=== PATIENT | female | born 1945 | race Caucasian/White ===

== ENCOUNTER 2018-04-03 10:37 | Outpatient (CLI) | payer MEDICARE, SELFPAY ==
--- NOTE | 2018-04-03 10:37 | DI.RAD_ITS ---
SYMPTOMS/DIAGNOSIS: LEFT RIB PAIN, THYROID METS KNOWN LEFT RIBS AND CHEST: Comparison is 02/21/18. The heart size and pulmonary vasculature are within normal limits. There is an infiltrate seen in the left lung base. There is a persistent small left pleural effusion. There is again seen a lytic lesion involving the lateral aspect of the left 4th rib. There now also appear to be lytic lesions involving the posterior aspect of the left 1st rib, posterolateral aspect of the left 2nd rib and the lateral aspect of the left 9th rib. These findings are suspicious for metastatic disease. The lesion involving the posterolateral aspect of the right 5th rib is again noted. IMPRESSION: 1. Bilateral lytic lesions involving the ribs, some of which do not appear to have been present on the examination from 02/21/18. The findings are suggestive of metastatic disease. 2. Small persistent left pleural effusion and left basilar infiltrate. This may represent atelectasis or pneumonia.
== END 2018-04-03 10:57 ==
PROVIDERS: PCP Family Medicine; Visit Provider Family Medicine
DX: R07.81 Pleurodynia (principal); J90 Pleural effusion, not elsewhere classified; R91.8 Other nonspecific abnormal finding of lung field; R93.7 Abnormal findings on diagnostic imaging of other parts of musculoskeletal system; Z85.850 Personal history of malignant neoplasm of thyroid
CPT/HCPCS: 71046; 71100

== ENCOUNTER 2018-07-30 08:21 | Emergency (ER) | payer MEDICARE, SELFPAY ==
[2018-07-30 08:32] VITALS: BP 154/72; PULSE 106; RESP 14; TEMP 36.6; O2SAT 94
--- NOTE | 2018-07-30 08:52 | ED.GENADUL_ITS ---
Discharge Plan Disposition Patient Disposition: HOME Condition: Stable Discharge Details Chief Complaint: RespSymp Clinical Impression: Malignant neoplasm metastatic to lung, Thyroid cancer, medullary carcinoma, Bone metastases Primary Care Provider: Symone Hodges ED Provider: Roberto Johnston Home Meds and New Rx's Prescriptions: New morphine 20 mg/5 mL (4 mg/mL) solution 1 - 4 mg PO Q1H PRN PRN (Reason: dyspnea) Qty: 50 RF: 0 Narcan 4 mg/actuation spray,non-aerosol 1 spray SULTANA ONCE PRN (Reason: opioid overdose) Qty: 2 RF: 0 No Action cyclobenzaprine 5 mg tablet 5 mg PO TID PRN (Reason: muscle spasm) Qty: 30 RF: 3 levofloxacin 500 mg tablet 500 mg PO DAILY Qty: 7 RF: 0 levofloxacin 500 mg tablet 500 mg PO DAILY Qty: 7 RF: 0 morphine concentrate 100 mg/5 mL (20 mg/mL) solution See Rx Instructions SL Q1H PRN MDD 5ml PRN (Reason: pain) Qty: 30 RF: 0 lorazepam 0.5 mg tablet 0.25 - 0.5 mg SL Q6H PRN (Reason: anxiety) Qty: 10 RF: 0 morphine concentrate 100 mg/5 mL (20 mg/mL) solution See Rx Instructions SL Q1H PRN MDD 5ml PRN (Reason: pain) Qty: 30 RF: 0 ondansetron HCl [Zofran] 4 MG tablet 4 mg PO Q6H PRN Qty: 30 RF: 0 Lactobacillus acidophilus [Probiotic] 1 EACH capsule 1 ea PO DAILY Qty: 1 RF: 0 mirtazapine 7.5 MG tablet 7.5 mg PO HS Qty: 30 RF: 11 losartan 50 MG tablet 50 mg PO DAILY Qty: 90 RF: 11 diltiazem HCl 120 MG tablet 120 mg PO DAILY Qty: 90 RF: 11 levothyroxine [Synthroid] 200 MCG tablet 175 mcg PO DAILY Qty: 1 RF: 0 hydrocodone-acetaminophen 5-325 mg tablet 1 tab PO Q6H MDD 3 PRN (Reason: pain) Qty: 60 RF: 0 aspirin [Aspir-81] 81 MG tablet,delayed release (DR/EC) 81 mg PO DIRECTED RF: 0 metoprolol tartrate 25 MG tablet 25 mg PO BID RF: 0 Discharge Instructions Instructions: Thyroid Cancer (GEN), Bone Metastasis (ED) Additional Instructions: Return to the emergency department for any new or worsening symptoms such as severe shortness of breath, fever chills, or further concerns. Otherwise follow-up with your oncologist when you return to [place]. If the new medications cause severe respiratory depression or failure you should administer Narcan and come immediately to the emergency department. Please take medications as prescribed. Referrals: Symone Hodges MD, [place] [Primary Care Provider] - (As needed for reassessment) Discharge Data Discharge Date/Time-TO BE ENTERED AT DEPARTURE: 07/30/18 13:45 Medical Decision Making Patient presenting to the emergency department for chief complaint of shortness of breath. Patient states shortness of breath times 3 days. She recently traveled to the area from [place] but lives [place] in the [place]. She states that she is on palliative care with Dr. Branham for thyroid cancer with metastasis to bone and lungs. Patient also states history of A. fib but not currently anticoagulated. Patient denies any pain or discomfort. Physical exam shows bilateral lower lung field fine crackles, tachycardia, otherwise benign exam with no reproducible pain. EKG shows sinus tachycardia with a rate of 109, normal access, nondiagnostic findings with no acute signs of ischemia. EKG reviewed with Dr. Begum Plan to check labs for rule out of ACS, CHF, PE. Labs were reviewed and shows negative troponin, within normal limits BNP, mild anemia with hemoglobin of 11.5, otherwise nondiagnostic laboratory findings. After CT was performed on patient pending CT imaging results. Of notation during waiting on CT results patient started having some irregularity to her heart rhythm which may be paroxysmal A. fib. 12-lead EKG was ordered. staff services manager attempted to capture irregularity of heart and noted unchanged EKG with sinus rhythm, rate in the 90s, no changes compared to previous EKG. they did state that they listen to patient's apical heart rate and was in the 90s even when the monitor showed rate of 140s. Leads were replaced and placed in a better position and shows rate and rhythm consistent more with twelve-lead EKG. Review of CT results shows a worsening metastasis with some pulmonary effusions and multiple nodules in the lungs. Also of notation is a change in an nodule on T11 it seems to be encroaching the spinal canal. Patient reassessed and has no neurological dysfunction and denies any symptoms. Given significant spread of cancer and worsening symptoms I did contact palliative care for consult. Susana Schrader came and evaluated the patient and after thorough ongoing discussion plan of care for patient to receive oral morphine, Lorazepam, and home O2 for comfort measures. I did offer for patient to be transferred to [facility] for MRI imaging of worsening nodule on T11 encroaching spinal canal and patient and family state that they do not want this at this time. They state they will be returning to [place] in a matter of a couple days and will follow up with oncology there as that is where they have been receiving primary treatment. They were informed to return to emergency department for any new or significant worsening of symptoms or further concerns they may have. Otherwise they were in agreement with plan of care to be discharged and to follow-up when they return to [place]. [place] drug database was queried and no concern for opiate abuse was noted. Patient did sign opiate consent. Given both prescription of opiate and benzodiazepine patient was also prescribed Narcan and instructed on use. HPI General Mode of arrival: ambulatory . Date/Time Provider Initiated Documentation: 07/30/18 08:22 . Limitations to Documentation: no limitations . Information obtained by: patient, family, RN notes reviewed and old records reviewed . History of Present Illness 73 year old F presents to the emergency department with the chief complaint of Shortness of breath, Quality is described as other (Denies pain or discomfort), Patient started experiencing this day(s) (3) and it has been constant. No relieving factors improve symptom(s), Patient notes no other symptoms.. Patient did receive the following treatments prior to arrival, none Related Data Home Medications Medication Instructions Recorded Confirmed aspirin [Aspir 81] 81 mg PO DIRECTED 12/17/16 11/15/17 ondansetron HCl [Zofran] 4 mg PO Q6H PRN #30 tab 01/10/17 metoprolol tartrate 25 mg PO BID 11/15/17 11/15/17 Lactobacillus acidophilus 1 ea PO DAILY #1 11/27/17 [Probiotic] mirtazapine 7.5 mg PO HS #30 tab-cap 01/01/18 diltiazem HCl 120 mg PO DAILY #90 tab-cap 02/13/18 levothyroxine [Synthroid] 175 mcg PO DAILY #1 tab-cap 02/13/18 losartan 50 mg PO DAILY #90 tab-cap 02/13/18 cyclobenzaprine 5 mg tablet 5 mg PO TID PRN #30 tab 04/03/18 04/03/18 hydrocodone 5 mg-acetaminophen 325 1 tab PO Q6H PRN #60 tab MDD 3 07/29/18 mg tablet morphine 1 - 4 mg PO Q1H PRN PRN #50 ml 07/30/18 naloxone [Narcan] 1 spray SULTANA ONCE PRN #2 each 07/30/18 levofloxacin 500 mg tablet 500 mg PO DAILY #7 tab 07/31/18 07/31/18 levofloxacin 500 mg tablet 500 mg PO DAILY #7 tab 07/31/18 07/31/18 lorazepam 0.5 mg tablet 0.25 - 0.5 mg SL Q6H PRN #10 tab 07/31/18 07/31/18 morphine concentrate 100 mg/5 mL See Rx Instructions SL Q1H PRN PRN 07/31/18 07/31/18 (20 mg/mL) oral solution #30 ml MDD 5ml morphine concentrate 100 mg/5 mL See Rx Instructions SL Q1H PRN PRN 07/31/18 07/31/18 (20 mg/mL) oral solution #30 ml MDD 5ml Previous Rx's Medication Instructions Recorded mirtazapine 7.5 mg PO HS #30 tab-cap 01/01/18 diltiazem HCl 120 mg PO DAILY #90 tab-cap 02/13/18 levothyroxine [Synthroid] 175 mcg PO DAILY #1 tab-cap 02/13/18 losartan 50 mg PO DAILY #90 tab-cap 02/13/18 cyclobenzaprine 5 mg tablet 5 mg PO TID PRN #30 tab 04/03/18 hydrocodone 5 mg-acetaminophen 325 1 tab PO Q6H PRN #60 tab MDD 3 07/29/18 mg tablet morphine 1 - 4 mg PO Q1H PRN PRN #50 ml 07/30/18 naloxone [Narcan] 1 spray SULTANA ONCE PRN #2 each 07/30/18 levofloxacin 500 mg tablet 500 mg PO DAILY #7 tab 07/31/18 levofloxacin 500 mg tablet 500 mg PO DAILY #7 tab 07/31/18 lorazepam 0.5 mg tablet 0.25 - 0.5 mg SL Q6H PRN #10 tab 07/31/18 morphine concentrate 100 mg/5 mL See Rx Instructions SL Q1H PRN PRN 07/31/18 (20 mg/mL) oral solution #30 ml MDD 5ml morphine concentrate 100 mg/5 mL See Rx Instructions SL Q1H PRN PRN 07/31/18 (20 mg/mL) oral solution #30 ml MDD 5ml Allergies Allergy/AdvReac Type Severity Reaction Status Date / Time codeine Allergy Mild Unverified 07/30/18 08:35 General Stated Complaint: RespSymp ROXANNA: 3 Review of Systems Constitutional Denies chills, Denies fever(s) and Denies malaise Cardiovascular Reports as per HPI, Denies chest pain, Denies chest pain with activity, Denies syncope, Denies edema, Denies irregular heart rhythm, Denies claudication, Den ies lightheadedness, Denies palpitations, Reports dyspnea and Reports dyspnea on exertion Respiratory Denies change in phlegm color, Denies cough, Denies excessive phlegm production, Reports dyspnea and Reports dyspnea on exertion Gastrointestinal Denies abdominal pain, Reports constipation, Denies nausea and Denies vomiting Neurologic Denies syncope Endocrine Denies palpitations PFSH Medical History Dyspnea (Acute) Cancer related pain (Acute) Thyroid cancer (Chronic) Surgical History Abdominal hysterectomy Family History Mother Neoplasm Father Stroke Sister Essential hypertension Sister Neoplasm Sister No problems noted. Brother Heart disease Brother Neoplasm Brother No problems noted. Brother Neoplasm Brother Stroke Grandmother Neoplasm Son No problems noted. Son No problems noted. Daughter No problems noted. Social History caregiver/support person: Yes household members: spouse housing: house lives independently: No current occupational status: retired leisure activities: reading Hx Recent Travel: Yes well-balanced diet: about half the time eating out: rarely or never during the past year weight has: decreased > 10 lbs Smoking/Tobacco Use Status: Never arminda/anabaptism: Anabaptist special arminda needs: No Exam Const General: cooperative, healthy appearing, comfortable, no acute distress, not diaphoretic and not ill appearing Nutritional Appearance: average body habitus Orientation: alert, awake and oriented x3 Limitations: mental status not altered Neck Neck: normal visual inspection, full ROM, trachea midline, supple and no anterior neck swelling Thyroid: thyroid normal Carotids: normal carotid upstroke and no bruits Chest Chest: normal inspection of the chest Resp Effort & Inspection: normal respiratory effort and able to speak in complete sentences Auscultation: crackles (fine) bilaterally at the base Cardio Jugular venous pressure: no JVD Palpation: normal PMI Rate: regular rate Rhythm: regular rhythm Heart Sounds: S1 normal, S2 normal, no click, no gallops, no murmurs and no rubs Bruits: no abdominal aortic bruits and no carotid bruits Pulses: radial pulses present bilaterally 2+ GI Inspection: normal to inspection Palpation: soft, no aortic enlargement, no pulsatile masses and nontender Auscultation: normal bowel sounds Skin General skin exam: no rashes or lesions noted Neuro General: alert, awake, oriented x3, tone normal and moves all extremities Course Vital Signs Temperature 36.6 C 07/30/18 08:32 Pulse 106 H 07/30/18 08:32 Respiratory Rate 14 07/30/18 08:32 Blood Pressure 154/72 H 07/30/18 08:32 Pulse Oximetry 94 L 07/30/18 08:32 Temperature 36.6 C 07/30/18 08:32 Temperature Source Temporal Artery Scan 07/30/18 08:32 Pulse 106 H 07/30/18 08:32 Respiratory Rate 14 07/30/18 08:32 Respiratory Effort 07/30/18 08:35 Blood Pressure 154/72 H 07/30/18 08:32 Blood Pressure Position Sitting 07/30/18 08:32 Pulse Oximetry 94 L 07/30/18 08:32 Oxygen Delivery Method Room Air 07/30/18 08:32 Oxygen Flow Rate 0 07/30/18 08:32 Pain Level 0 07/30/18 08:32 Comment 07/30/18 08:32
[2018-07-30 09:09] LABS: Abs Immature Grans 0.02 k/cumm (0.0-0.09); Absolute Basophil Count 0.02 k/cumm (0.0-0.2); Absolute Eosinophil Count 0.08 k/cumm (0.0-0.7); Absolute Lymphocyte Count 0.48 k/cumm (1.2-3.4); Absolute Neutrophil Count 7.96 k/cumm (1.2-6.7); Basophils % 0.2; Eosinophils % 0.9; HGB 11.8 g/dL (12.0-15.5); Immature Grans % 0.2; Lymphocytes % 5.1; Mean Corp. HGB Concentration 31.9 g/dL (32.0-36.0); Mean Corpuscular Hemoglobin 27.4 pg (27.0-33.0); Mean Corpuscular Volume 85.8 fL (80-95); Monocytes % 8.5; Neutrophils % 85.1; Platelet Count 248 x1000/uL (130-400); RBC 4.31 m/cumm (4.00-5.20); RBC Distribution Width 17.1 % (11.7-14.6); White Blood Cell Count 9.36 k/cumm (4.4-10.8)
[2018-07-30 09:26] LABS: INR 1.1 (1.0-3.5); Prothrombin Time 10.9 sec (9.3-11.0)
[2018-07-30 09:29] LABS: ALT 14 U/L (12-78); AST 22 U/L (15-37); Albumin 2.9 g/dL (3.4-5.0); Alkaline Phosphatase 105 U/L (46-116); Anion Gap 11.7 mmol/L (3-11); BUN 15 mg/dL (7-18); Bilirubin, Total 0.9 mg/dL (0.2-1.0); CO2 25.3 mmol/L (21.0-32.0); CREATININE 0.77 mg/dL (0.55-1.02); Calcium 8.9 mg/dL (8.5-10.1); Chloride 99 mmol/L (98-107); Glucose 101 mg/dL (70-100); Magnesium 2.3 mg/dL (1.8-2.4); NT-proBNP 264 pg/mL; Potassium 3.7 mmol/L (3.5-5.1); Sodium 136 mmol/L (136-145); Total Protein 7.5 g/dL (6.4-8.2)
[2018-07-30 09:30] LABS: Troponin I < 0.02 ng/mL (0.00-0.06)
[2018-07-30] MEDS: Omnipaque 350 MG/ML 100 ML BTL IJ (10:09)
--- NOTE | 2018-07-30 10:11 | DI.CT_ITS ---
SYMPTOMS/DIAGNOSIS: SHORTNESS OF BREATH PE CHEST CTA: CT angiography was performed with multi slice acquisition and multi planar and 3D reconstruction. Comparison is made with [id number]. There is no evidence of pulmonary emboli or aortic dissection. There are now moderate sized bilateral pleural effusions. There are multiple pleural based nodularies bilaterally, right greater than left with increase in size of metastatic lesions. Numerous bilateral pulmonary nodules are again noted most of which show increased size. There has been significant interval increase in size of a metastatic lesion seen in the posterior elements of T 11 which encroaches on the spinal canal. It measures approximately 4.4 x 2.6 cm. Multiple other smaller lytic lesions are seen in the spine and ribs. A nodule vs lymph node is seen in the left superior mediastinum. The patient appears to be status post thyroidectomy. Enlarged mediastinal nodes are seen with significant increase in size when compared with the previous exam. The larger nodes in the subcarinal region have a necrotic appearance. Low density lesions in the liver are noted which have the appearance of cysts. There are other lesions which show enhancement which are suspicious for metastatic disease which were not visible on the previous exam. IMPRESSION: Marked interval worsening of metastatic lesions. There are now bilateral pleural effusion and significantly increased pulmonary and pleural metastases. There is a large lesion in the posterior elements of T 11 which encroaches on the spinal canal.
--- NOTE | 2018-07-30 10:38 | DI.VRAD_ITS ---
Addendum created by María Pagan MD on 07/30/2018 10:49:18 AM EST THIS REPORT CONTAINS FINDINGS THAT MAY BE CRITICAL TO PATIENT CARE. The findings were verbally communicated via telephone conference with SIOBHAN OSUNA at 10:49 AM EST on 07/30/2018. The findings were acknowledged and understood. Initial report created on 07/30/2018 10:38:27 AM EST EXAM: CT Angiography Chest With Contrast EXAM DATE/TIME: 07/30/2018 10:08 AM CLINICAL HISTORY: 73 years old, female; Signs and symptoms; Shortness of breath; Patient HX: SOB. HX thyroid CA w/mets to lung and bone TECHNIQUE: Axial computed tomographic angiography images of the chest with intravenous contrast using CT angiography protocol. All CT scans at this facility use at least one of these dose optimization techniques: automated exposure control; mA and/or kV adjustment per patient size (includes targeted exams where dose is matched to clinical indication); or iterative reconstruction. Coronal and sagittal reformatted images were created and reviewed. MIP reconstructed images were created and reviewed. CONTRAST: 100 ml of omni 350 administered intravenously. COMPARISON: CT CHEST WITH CONTRAST 01/01/2018 1:42 PM FINDINGS: Pulmonary arteries: No evidence of pulmonary embolus to the segmental level. Aorta: Unruptured aneurysm of the ascending aorta 4 cm. No dissection of the aorta. Lungs: Consolidation in the lower lobes may represent atelectasis or pneumonia. Soft tissue mass in the medial right upper lobe may represent tumor versus pneumonia. Pleural space: Multiple pleural-based masses and multiple pulmonary nodules bilaterally consistent with metastatic disease. Moderate bilateral pleural effusions. Heart: Coronary artery calcifications may indicate coronary artery disease Liver: Hepatic cysts. Multiple nodules in the liver may represent metastatic disease. Lymph nodes: Pathologic node periaortic region 2.1 x 1.4 cm. Subcarinal adenopathy Bones/joints: Lytic lesions in the left second and fourth ribs. Lytic lesion in the fourth rib contains a mass. Multiple lytic lesions in the spine and ribs. Possible lytic lesion with pathologic fracture left posterior 10th rib. 4.4 x 2.6 cm lytic lesion involving the posterior elements of T11 and encroaching on the spinal canal(5:84). Soft tissues: Unremarkable. IMPRESSION: 1. 4.4 x 2.6 cm lytic lesion involving the posterior elements of T11 and encroaching on the spinal canal(5:84). 2. No evidence of pulmonary embolus to the segmental level. 3. Unruptured aneurysm of the ascending aorta 4 cm. 4. No dissection of the aorta. 5. Lytic lesions in the left second and fourth ribs. Lytic lesion in the fourth rib contains a mass. Multiple lytic lesions in the spine and ribs. Possible lytic lesion with pathologic fracture left posterior 10th rib. 6. Multiple pleural-based masses and multiple pulmonary nodules bilaterally consistent with metastatic disease. 7. Moderate bilateral pleural effusions. 8. Consolidation in the lower lobes may represent atelectasis or pneumonia. 9. Soft tissue mass in the medial right upper lobe may represent tumor versus pneumonia. Dictated and Authenticated by: María Pagan MD. Ordering:AZEB Mejia MD
[2018-07-30] MEDS: Ibuprofen 400 MG TAB PO (11:58)
[2018-07-30] MEDS: HYDROcodone 5/Acetaminophen 325 TAB PO (11:59)
--- NOTE | 2018-07-30 13:07 | PCNE_ITS ---
Date of service: 07/30/18 Time of Service: 11:13 History of Present Illness Chief Complaint: dyspnea associated with end-stage cancer, metastatic thyroid ca Narrative: Monica Mendoza is a 73 yo woman with widely metastatic thyroid cancer usually followed by Dr. Symone Hodges for both PCP and palliative care. She presented to the ER today with acute dyspnea, weakness, fatigue. Her PPS is about 30-40%. She is planning on returning to [facility] on (48 hrs) with her and son accompanying her. She was not wearing oxygen when I saw her in the ER. She had been in the low 90s when she first arrived. She thinks the oxygen may have made her feel better at first. Her SOB was better. She looked pale and weak, but was still mentating ok, still able to make her own decisions. She saw Dr. Hodges recently; she was prescribed hydrocodone for pain a ssociated with bony mets. She had a CT scan today in the ER which shows widespread disease. Her son reports she can only walk about 10 feet before she has to sit down and rest. She was tearful but very aware of her impending . We discussed hospice. Her family will call her oncologist and her PCP as soon as they return to [facility] to get her enrolled in hospice [facility]. We discussed possible s/e of morphine--primarily constipation, which itself can cause dyspnea. Advised she eat prunes regularly or take an OTC stool softener. We discussed her having ativan for anxiety associated with dsypnea. She will use all of these-morphine, ativan and oxygen--as a preliminary tool kit to keep her comfortable in transit from [place] to [facility]. She is in no spiritual distress, no psychological distress. She appears calm, though a bit worried about her . They've been for 52 years, happily. Consults Consult date: 07/30/18 Assessment and Plan (1) Dyspnea: Current visit: No Status: Acute related to her widely metastatic cancer explained that low-dose morphine can help with this symptom Roberto Johnston prescribed liquid morphine 20 mg/ml with 0.25 ml-1.0 ml q 1 hr Suggested that Monica start with lowest dose. Suggested her review dosing with pharmacy, too, as he is very worried about using morphine in general. Also suggested rx of oxygen to be used during air travel. Hui Bauman, RT, came in to help order oxygen from [facility]. Qualifiers: Dyspnea type: other forms of dyspnea Qualified Code(s): R06.09 - Other forms of dyspnea (2) Cancer related pain: Current visit: No Status: Acute Dr Hodges recently prescribed hydrocodone to treat this. Monica has extensive bony mets. I spoke to Dr. Hodges after I saw Monica and she will see her at home tomorrow to make sure Monica is as comfortable as possible for her trip home to [place]. (3) Thyroid cancer, medullary carcinoma: Current visit: No Status: Acute Qualifies for hospice. Strongly encouraged Monica to sign up for hospice as soon as she gets home. PLEASE SEE HPI for further discussion. If for any reason her health declines so she cannot return home, we certainly could transition her to hospice here [facility]. Review of Systems Constitutional Reports fatigue, Reports poor appetite, Reports weakness and Reports weight loss Eyes Reports dry eyes ENT Reports dry mouth Cardiovascular Reports dyspnea and Reports dyspnea on exertion Respiratory Reports dyspnea and Reports dyspnea on exertion Gastrointestinal Reports constipation and Reports early satiety Musculoskeletal Reports back pain, Reports arthralgias, Reports limited range of motion and Reports muscle weakness Neurologic Reports weakness Psychiatric Reports difficulty concentrating Endocrine Reports fatigue PFSH Medical History Dyspnea (Acute) Cancer related pain (Acute) Thyroid cancer (Chronic) Surgical History Abdominal hysterectomy Family History Mother Neoplasm Father Stroke Sister Essential hypertension Sister Neoplasm Sister No problems noted. Brother Heart disease Brother Neoplasm Brother No problems noted. Brother Neoplasm Brother Stroke Grandmother Neoplasm Son No problems noted. Son No problems noted. Daughter No problems noted. Social History caregiver/support person: Yes household members: spouse housing: house marital status: lives independently: No current occupational status: retired leisure activities: reading Hx Recent Travel: Yes well-balanced diet: about half the time eating out: rarely or never during the past year weight has: decreased > 10 lbs Smoking/Tobacco Use Status: Never arminda/buddhist: Gnosticist special arminda needs: No Exam Const General: cooperative, frail appearing and ill appearing Nutritional Appearance: average body habitus Orientation: alert and awake HENMT Head: normocephalic and atraumatic Ears: hearing grossly normal bilaterally General nose exam: external nose normal Face and sinus: dry mucous membranes Eyes Conjunctivae: conjunctivae normal Sclera: sclerae normal Neck Lymphatic: lymphadenopathy Resp Effort & Inspection: able to speak in complete sentences Auscultation: crackles and diminished lung sounds Cardio Rate: tachycardic Rhythm: regular rhythm Heart Sounds: S1 normal and S2 normal GI Palpation: soft Auscultation: normal bowel sounds Back/Spine/Pelvis Back: back tenderness Skin General skin exam: pallor Neuro General: alert, awake and oriented x3 Cognition: normal cognition Speech: speech normal Extrem General: edema Psych Appearance: well kempt Speech and Movement: delayed speech and slowed movement Affect: sad Attitude: cooperative Thought Process: normal Thought Content: normal Insight: insight good Judgment: judgment good Results Last Vital Signs Temp 97.9 F 07/30/18 08:32 Pulse 106 H 07/30/18 08:32 Resp 14 07/30/18 08:32 BP 154/72 H 07/30/18 08:32 Pulse Ox 94 L 07/30/18 08:32 Labs : 07/30/18 09:00 07/30/18 09:00 Laboratory Results - last 24 hr 07/30/18 07/30/18 07/30/18 09:00 09:00 09:00 WBC 9.36 RBC 4.31 Hgb 11.8 L Hct 37.0 MCV 85.8 MCH 27.4 MCHC 31.9 L RDW 17.1 H Plt Count 248 MPV 11.0 Immature Gran % 0.2 Neutrophils % 85.1 Lymphocytes % 5.1 Monocytes % 8.5 Eosinophils % 0.9 Basophils % 0.2 Absolute Neutrophils 7.96 H Absolute Lymphocytes 0.48 L Absolute Monocytes 0.80 H Absolute Eosinophils 0.08 Absolute Basophils 0.02 PT 10.9 INR 1.1 APTT 25.0 Sodium 136 Potassium 3.7 Chloride 99 Carbon Dioxide 25.3 Anion Gap 11.7 H BUN 15 Creatinine 0.77 Estimated GFR/1.73 m2 >= 60.00 Glucose 101 H Calcium 8.9 Magnesium 2.3 Total Bilirubin 0.9 AST 22 ALT 14 Alkaline Phosphatase 105 Troponin I < 0.02 NT-Pro-B Natriuret Pep 264 Total Protein 7.5 Albumin 2.9 L
[2018-07-30 13:34] VITALS: BP 154/72; PULSE 106; RESP 14; TEMP 36.6; O2SAT 94
[2018-07-31 16:57] LABS: TSH (W/Ref FT4) 2.49 uIU/mL (0.358-3.74)
== END 2018-07-30 13:45 | disposition home or self-care (01) ==
PROVIDERS: Emergency Provider Nurse Practitioner Family; PCP Family Medicine
DX: C79.51 Secondary malignant neoplasm of bone; C78.01 Secondary malignant neoplasm of right lung; C78.02 Secondary malignant neoplasm of left lung; C73 Malignant neoplasm of thyroid gland; R06.02 Shortness of breath
CPT/HCPCS: 36415; 71275; 80053; 93005; 99255; 99285; 83735; 83880; 84443; 84484; 85025; 85610; 85730; 93010; 99284; J3490